=== PATIENT | female | born 1945 | race American Indian/Alaskan Native ===

== ENCOUNTER 2016-09-22 07:03 | Day surgery (SDC) | payer MEDICARE ==
[2016-09-19 08:45] VITALS: BMI 26.9
[2016-09-22] MEDS ORDERED: Propofol 10 mg/ml Inj (20 ML) ONE (08:57)
[2016-09-22] MEDS ORDERED: Lactated Ringer's 500 ML IV SCH (09:15)
[2016-09-22 09:44] VITALS: TEMP 98
[2016-09-22 10:50] VITALS: BP 143/76; PULSE 77; RESP 18; O2SAT 99
== END 2016-09-22 10:35 | disposition home or self-care (01) ==
LOC: C.ENDO 07:03 → MERGE 07:03 → C.ENDO 10:35
PROVIDERS: ATTEND Internal Medicine Gastroenterology
DX: K57.90 Diverticulosis of intestine, part unspecified, without perforation or abscess without bleeding (principal); K64.8 Other hemorrhoids
CPT/HCPCS: 45378; 82948; J2704; J3010; J7120